=== PATIENT | male | born 1965 | race Two or more races ===

== ENCOUNTER 2016-10-21 22:09 | Emergency (ER) | payer SELFPAY ==
[~2016-10-21] VITALS: Ht 167.6 cm; Wt 68.0 kg
[2016-10-21 22:11] VITALS: BP 123/80
== END 2016-10-22 06:03 | disposition left against medical advice (07) ==
LOC: ER 22:11
DX: F10.120 Alcohol abuse with intoxication, uncomplicated (principal)